=== PATIENT | female | born 1980 | race Asian ===

== ENCOUNTER 2022-03-16 12:11 | Outpatient (CLI) | payer BC | END 2022-03-16 12:12 | disposition home or self-care (01) | LOC: CSHMAMMO 12:11 | PROVIDERS: ATTEND Obstetrics & Gynecology | DX: Z12.31 Encounter for screening mammogram for malignant neoplasm of breast (principal); N63.20 Unspecified lump in the left breast, unspecified quadrant | CPT/HCPCS: 77063; 77067 ==

== ENCOUNTER 2022-04-04 08:10 | Outpatient (CLI) | payer BC | END 2022-04-04 08:11 | disposition home or self-care (01) | LOC: CSHMAMMO 08:10 | PROVIDERS: ATTEND Obstetrics & Gynecology | DX: N63.24 Unspecified lump in the left breast, lower inner quadrant (principal) | CPT/HCPCS: G0279 ==

== ENCOUNTER → 2022-04-11 | Day surgery (SDC) | payer BC | END | disposition home or self-care (01) | LOC: CSHULT 09:42 | PROVIDERS: ATTEND Obstetrics & Gynecology | PROC: 0H9U3ZX Drainage of Left Breast, Percutaneous Approach, Diagnostic (ICD-10-PCS; principal; 2022-04-11) | DX: D24.2 Benign neoplasm of left breast (principal) | CPT/HCPCS: 19083; 88305; 88341; 88342 ==

== ENCOUNTER 2022-08-16 05:58 | Day surgery (SDC) | payer BC ==
[2022-08-11 09:28] LABS: Hemoglobin 10.1 g/dL (12.0-15.5); Mean Corpuscular HGB CONC 29.5 g/dL (32.0-36.0); Mean Corpuscular Hemoglobin 21.4 pg (27.0-33.0); Mean Corpuscular Volume 72.5 fl (81.6-98.3); Mean Platelet Volume 11.5 fl (7.4-10.4); Platelet Count 393 10x3/uL (150-450); RBC Distribution Width 15.9 % (11.5-14.5); Red Blood Cell (RBC) Count 4.72 10x6/uL (3.90-5.03); White Blood Cell (WBC) Count 5.3 10x3/uL (3.5-10.5)
[2022-08-11 09:56] LABS: BHCG - Serum Negative (NEGATIVE); Pregs Control Background? CLEAR/WHITE (CLR/WHITE); Pregs Control Bar Appear? YES (CONTROL BAR)
[2022-08-15 09:12] VITALS: BMI 22.6
[2022-08-16] MEDS ORDERED: Famotidine/PF 20 mg/2ml Vial ONE (06:33)
[2022-08-16] MEDS ORDERED: Gabapentin 300 MG CAP ONE (06:33)
[2022-08-16] MEDS ORDERED: CeleCOXIB 100 MG CAP ONE (06:34)
[2022-08-16] MEDS ORDERED: Rocuronium Bromide 10 MG/ML (10ML VIAL) ONE (06:41)
[2022-08-16] MEDS ORDERED: Fentanyl 250 MCG/5 ML VIAL ONE (06:41)
[2022-08-16] MEDS ORDERED: Ondansetron PF 4 MG/2 ML Vial ONE (06:41)
[2022-08-16] MEDS ORDERED: Dexamethasone 4 mg/ml Vial ONE (06:41)
[2022-08-16] MEDS ORDERED: Midazolam HCl 2 mg/2 ml Vial ONE (06:41)
[2022-08-16] MEDS ORDERED: PROPOFOL 20 ML ONE (06:41)
[2022-08-16] MEDS ORDERED: Lidocaine 2% PF 5 ML VIAL ONE (06:42)
[2022-08-16] MEDS ORDERED: Ketorolac Tromethamine 30 MG/ML VIAL ONE (06:42)
[2022-08-16] MEDS ORDERED: Glycopyrrolate 0.2 MG/ML 5 ML SYRINGE ONE (06:42)
[2022-08-16] MEDS ORDERED: Bupivacaine PF 0.5% 30 ML VIAL ONE (06:46)
[2022-08-16] MEDS ORDERED: EPINEPHrine 1 MG/ML AMP ONE (06:46)
[2022-08-16] MEDS ORDERED: CEFAZOLIN 2 GM VIAL ONE (07:25)
== END 2022-08-16 13:00 | disposition home or self-care (01) ==
LOC: CSHSDC 05:58
PROVIDERS: ATTEND Student in an Organized Health Care Education/Training Program
PROC: 0UT74ZZ Resection of Bilateral Fallopian Tubes, Percutaneous Endoscopic Approach (ICD-10-PCS; principal; 2022-08-16)
PROC: 0UT94ZZ Resection of Uterus, Percutaneous Endoscopic Approach (ICD-10-PCS; principal; 2022-08-16)
DX: D25.9 Leiomyoma of uterus, unspecified (principal); N80.03 Adenomyosis of the uterus; N87.9 Dysplasia of cervix uteri, unspecified; N92.0 Excessive and frequent menstruation with regular cycle; N73.6 Female pelvic peritoneal adhesions (postinfective); Z79.899 Other long term (current) drug therapy; Z20.822 Contact with and (suspected) exposure to COVID-19
CPT/HCPCS: 84703; 85027; 86850; 86900; 86901; 87811; 88307; C1713; J0171; J0690; J1100; J1885; J2001; J2250; J2405; J2704; J3010; S0020; S0028

== ENCOUNTER 2025-07-17 12:08 | Outpatient (CLI) | payer BC | END 2025-07-17 12:09 | disposition home or self-care (01) | LOC: CSHMAMMO 12:08 | PROVIDERS: ATTEND Obstetrics & Gynecology | DX: Z12.31 Encounter for screening mammogram for malignant neoplasm of breast (principal) | CPT/HCPCS: 77063; 77067 ==